=== PATIENT | female | born 2000 | race African-American/Black ===

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

== ENCOUNTER 2020-03-24 20:21 | Emergency (ER) | payer BC ==
[~2020-03-24] VITALS: Ht 172.7 cm; Wt 70.0 kg
[2020-03-24] MEDS ORDERED: SODIUM CHLORIDE 0.9% 1,000 ML IV ONE (20:37)
[2020-03-24 21:03] LABS: BASOPHILS % 0.6 % (0.0-2.0); HEMATOCRIT. 33.4 % (36.0-48.0); HEMOGLOBIN. 11.1 g/dL (12.0-16.0); LYMPHOCYTES % 41.6 % (20.0-50.0); MEAN CORPUSCULAR VOLUME 81.2 fL (81.0-99.0); MEAN PLATELET VOLUME 9.1 fl (7.4-10.4); MONOCYTES % 10.2 % (2.0-8.0); NEUTROPHILS % 45.6 % (40.0-76.0); PLATELET 247 x1000/uL (130-400); RED BLOOD CELL COUNT 4.11 mill/uL (4.2-5.4); RED CELL DISTRIBUTION WIDTH 17.8 % (11.6-14.6)
[2020-03-24 21:12] LABS: PROTHROMBIN TIME 10.4 sec (9.6-11.0)
[2020-03-24 21:14] LABS: CHLORIDE 107 mEq/L (98-107)
[2020-03-24 21:18] LABS: ETHANOL BLOOD < 10 mg/dL
[2020-03-24 21:20] LABS: HCG SCREEN NEGATIVE
[2020-03-24 21:22] LABS: CREATINE KINASE 366 IU/L (26-192)
[2020-03-24 23:36] LABS: CLARITY URINE CLOUDY (CLEAR); COLOR URINE YELLOW (YELLOW); KETONES URINE TRACE (NEGATIVE); LEUKOCYTE ESTERASE URINE TRACE (NEGATIVE); NITRITE URINE NEGATIVE (NEGATIVE); OCCULT BLOOD URINE NEGATIVE (NEGATIVE); PH URINE 6.5 (4.5-8.0); PROTEIN URINE 1+ (NEGATIVE); SPECIFIC GRAVITY URINE 1.037 (1.005-1.030)
[2020-03-25 00:09] LABS: *AMPHETAMINES SCREEN URINE NEGATIVE (NEGATIVE); *BARBITURATES SCREEN URINE NEGATIVE (NEGATIVE)
[2020-03-25 00:10] LABS: *BENZODIAZEPINES SCREEN URINE NEGATIVE (NEGATIVE); *COCAINE SCREEN URINE NEGATIVE (NEGATIVE); METHADONE URINE SCREEN NEGATIVE (NEGATIVE); OPIATES URINE SCREEN NEGATIVE (NEGATIVE); PHENCYCLIDINE URINE SCREEN NEGATIVE (NEGATIVE)
[2020-03-25 00:11] LABS: CANNABINOID URINE SCREEN NEGATIVE (NEGATIVE)
[2020-03-25 03:35] LABS: CHLORIDE 112 mEq/L (98-107)
[2020-03-25 21:32] VITALS: BP 113/63
== END 2020-03-25 21:45 ==
LOC: ER 20:21
DX: S00.83XA Contusion of other part of head, initial encounter (principal); T39.311A Poisoning by propionic acid derivatives, accidental (unintentional), initial encounter; T14.91XA Suicide attempt, initial encounter; Y92.89 Other specified places as the place of occurrence of the external cause; D64.9 Anemia, unspecified; Y09 Assault by unspecified means; Y93.89 Activity, other specified; Y99.8 Other external cause status
CPT/HCPCS: 36415; 70450; 71045; 80048; 80053; 80305; 80307; 80320; 80329; 81003; 82550; 83605; 84703; 85025; 85610; 87426; 87635; 93005; 96360; 96361; 99285; C9803; J7030; G0480